=== PATIENT | male | born 1935 | race African-American/Black ===

== ENCOUNTER 2018-01-14 12:37 | Outpatient (CLI) | payer MEDICARE ==
--- NOTE | 2018-01-14 15:29 | CT ---
CT BRAIN WITHOUT CONTRAST CT ANGIOGRAM HEAD WITH CONTRAST: HISTORY: Cerebral aneurysm. COMPARISON: CT angiogram 12/28/15. FINDINGS: There is no acute hemorrhage or infarct. No midline shift or mass effect. The calvarium is intact. Paranasal sinuses and mastoids are clear. There is mild soft tissue swelling on the posterior occiput. Globes are intact. 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 No ot her aneurysm is present. No thrombosis. [place] is patent. 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 POS: [facility]
== END 2018-01-14 12:38 | disposition home or self-care (01) ==
LOC: TBSIIMAG 12:37
PROVIDERS: ATTEND Neurological Surgery
DX: I67.1 Cerebral aneurysm, nonruptured (principal)
CPT/HCPCS: 70496; 82565